=== PATIENT | female | born 1970 | race Caucasian/White ===

== ENCOUNTER 2016-09-10 21:53 | Emergency (ER) | payer OTHER ==
[~2016-09-10 21:53] MED LIST: DEXILANT30 MG PO; DIOVAN80 MG PO; LEXAPRO20 MG PO; LO OVRAL PO
[2016-09-10 22:36] LABS: BASOPHILS 0.1 % (0.0-2.0); EOSINOPHILS 1.3 % (0-7); HEMATOCRIT 37.4 % (36.0-48.0); HEMOGLOBIN 12.2 g/dL (12-16); IMMATURE GRANULOCYTES 0.3 % (0-5); LYMPHOCYTES 19.7 % (15-50); MCH 27.9 pg (26.0-34.0); MCHC 32.6 g/dL (31.0-37.0); MCV 85.4 fL (80.0-100.0); MEAN PLATELET VOLUME 9.2 fL (7.4-10.4); MONOCYTES 5.4 % (2-11); NEUTROPHILS 73.2 % (40-80); PLATELET COUNT 299 10x3/uL (130-400); RBC 4.38 10x6/uL (4.00-5.40); RDW 14.1 % (11.5-14.5); WBC 13.1 10x3/uL (4.8-10.8)
[2016-09-10 22:56] LABS: ALBUMIN 2.6 g/dL (3.4-5.0); ALKALINE PHOSPHATASE 68 U/L (46-116); ALT (SGPT) 11 U/L (10-68); BILIRUBIN - TOTAL 0.22 mg/dL (0.2-1.3); CALCIUM 7.7 mg/dL (8.5-10.1); CARBON DIOXIDE 21.2 mmol/L (21.0-32.0); CHLORIDE - SERUM 104 mmol/L (98-107); CREATININE - SERUM 2.6 mg/dL (0.6-1.3); POTASSIUM - SERUM 3.5 mmol/L (3.5-5.1); PROTEIN - SERUM 5.9 g/dL (6.4-8.2); SODIUM 137 mmol/L (136-145); UREA NITROGEN 25 mg/dL (7-18); eGFR NON AFRICAN AMERICAN 21 mL/min (90-120)
[2016-09-10 22:59] LABS: C-REACTIVE PROTEIN 8.5 mg/dL (0.0-0.9); CREATINE KINASE 23 UL (21-215); MAGNESIUM - SERUM 1.7 mg/dL (1.8-2.4)
[2016-09-10 23:02] LABS: CALC OSMOLALITY 282 mosm/kg (275-300); GLUCOSE 188 mg/dL (74-106); TROPONIN-I < 0.017 ng/mL (0.000-0.060)
[2016-09-10 23:25] LABS: PRO BNP 319 pg/mL (0-125)
[2016-09-10 23:36] LABS: ERYTHROCYTE SEDIMENTATION RATE 29 mm/hr (0-20)
[2016-09-10 23:37] LABS: APPEARANCE TURBID (CLEAR); BILIRUBIN NEGATIVE (NEGATIVE); COLOR YELLOW (YELLOW); GLUCOSE NEGATIVE (NEGATIVE); KETONE NEGATIVE (NEGATIVE); LEUKOCYTE ESTERASE 2+ (NEGATIVE); NITRITE NEGATIVE (NEGATIVE); PROTEIN 2+ mg/dL (NEGATIVE); SPECIFIC GRAVITY 1.015 (1.005-1.020); UROBILINOGEN NORMAL (NORMAL)
[2016-09-10 23:46] LABS: BACTERIA MANY /hpf (NONE SEEN); GRANULAR CAST RARE /lpf (NONE SEEN); HYALINE CAST RARE /lpf (NONE SEEN); MUCUS <1+ /lpf (NONE SEEN); WHITE CELLS - URINE >50 /hpf (0-5)
== END 2016-09-11 01:25 | disposition home or self-care (01) ==
LOC: D.ER 21:53
PROVIDERS: Emergency Medicine
DX: R00.2 Palpitations (principal); R00.0 Tachycardia, unspecified

== ENCOUNTER 2016-10-27 07:22 | Inpatient (IN) | payer OTHER ==
[~2016-10-27] VITALS: Ht 157.5 cm; Wt 125.9 kg
[2016-10-27] MEDS ORDERED: LESCOL40 MG PO (08:13)
[2016-10-27] MEDS ORDERED: COZAAR50 MG PO (08:14)
[2016-10-27 08:15] LABS: BASOPHILS 0.5 % (0-2); EOSINOPHILS 2.3 % (0-7); HEMATOCRIT 38.9 % (36.0-48.0); HEMOGLOBIN 12.7 g/dL (12-16); IMMATURE GRANULOCYTES 0.2 % (0-5); LYMPHOCYTES 25.2 % (15-50); MCH 28.3 pg (26.0-34.0); MCHC 32.6 g/dL (31.0-37.0); MCV 86.8 fL (80.0-100.0); MEAN PLATELET VOLUME 9.5 fL (7.4-10.4); MONOCYTES 4.2 % (2-11); NEUTROPHILS 67.6 % (40-80); PLATELET COUNT 350 10x3/uL (130-400); RBC 4.48 10x6/uL (4.00-5.40); RDW 14.2 % (11.5-14.5); WBC 8.8 10x3/uL (4.8-10.8)
[2016-10-27 08:19] LABS: ANION GAP 15.2 mmol/L (8-16); CALCIUM 8.8 mg/dL (8.5-10.1); CARBON DIOXIDE 21.6 mmol/L (21.0-32.0); CREATININE - SERUM 2.6 mg/dL (0.6-1.3); POTASSIUM - SERUM 3.8 mmol/L (3.5-5.1)
[2016-10-27 08:20] LABS: INR 0.9 (0.85-1.17)
[2016-10-27 08:24] VITALS: BP 132/98; BMI 48.6
[2016-10-27 16:46] VITALS: BP 129/79; Ht 157.5 cm; Wt 125.9 kg
[2016-10-27 18:29] LABS: BASOPHILS 0.1 % (0-2); EOSINOPHILS 0.7 % (0-7); HEMATOCRIT 34.7 % (36.0-48.0); HEMOGLOBIN 11.1 g/dL (12-16); IMMATURE GRANULOCYTES 0.2 % (0-5); LYMPHOCYTES 15.4 % (15-50); MCV 87.6 fL (80.0-100.0); MEAN PLATELET VOLUME 9.3 fL (7.4-10.4); MONOCYTES 3.1 % (2-11); NEUTROPHILS 80.5 % (40-80); PLATELET COUNT 327 10x3/uL (130-400); RBC 3.96 10x6/uL (4.00-5.40); RDW 14.3 % (11.5-14.5)
[2016-10-27 18:35] LABS: INR 0.95 (0.85-1.17); PROTIME 12.5 SECONDS (11.6-15.0)
[2016-10-27 18:36] LABS: WBC 11.3 10x3/uL (4.8-10.8)
[2016-10-28 00:42] VITALS: BP 126/85
[2016-10-28 04:00] VITALS: BP 143/71
[2016-10-28 06:07] LABS: BASOPHILS 0.3 % (0-2); HEMATOCRIT 31.8 % (36.0-48.0); HEMOGLOBIN 10.4 g/dL (12-16); IMMATURE GRANULOCYTES 0.3 % (0-5); LYMPHOCYTES 18.7 % (15-50); MCH 28.7 pg (26.0-34.0); MCHC 32.7 g/dL (31.0-37.0); MCV 87.6 fL (80.0-100.0); MEAN PLATELET VOLUME 9.8 fL (7.4-10.4); MONOCYTES 4.9 % (2-11); NEUTROPHILS 74.8 % (40-80); PLATELET COUNT 339 10x3/uL (130-400); RBC 3.63 10x6/uL (4.00-5.40); RDW 14.5 % (11.5-14.5); WBC 11.7 10x3/uL (4.8-10.8)
[2016-10-28 06:18] LABS: ANION GAP 14.4 mmol/L (8-16); CARBON DIOXIDE 21.7 mmol/L (21.0-32.0); CREATININE - SERUM 2.7 mg/dL (0.6-1.3); POTASSIUM - SERUM 4.1 mmol/L (3.5-5.1)
[2016-10-28 12:35] LABS: BASOPHILS 0.1 % (0-2); EOSINOPHILS 0 % (0-7); HEMOGLOBIN 10.9 g/dL (12-16); IMMATURE GRANULOCYTES 0.3 % (0-5); MCH 28.1 pg (26.0-34.0); MCHC 32.1 g/dL (31.0-37.0); MCV 87.6 fL (80.0-100.0); MEAN PLATELET VOLUME 9.3 fL (7.4-10.4); MONOCYTES 3.3 % (2-11); NEUTROPHILS 89.3 % (40-80); PLATELET COUNT 326 10x3/uL (130-400); RBC 3.88 10x6/uL (4.00-5.40); RDW 14.5 % (11.5-14.5); WBC 15.6 10x3/uL (4.8-10.8)
[2016-10-28 12:48] VITALS: BP 121/76
[2016-10-28 14:05] LABS: APPEARANCE CLOUDY (CLEAR); BILIRUBIN NEGATIVE (NEGATIVE); COLOR RED (YELLOW); GLUCOSE NEGATIVE (NEGATIVE); KETONE NEGATIVE (NEGATIVE); LEUKOCYTE ESTERASE 1+ (NEGATIVE); NITRITE NEGATIVE (NEGATIVE); PROTEIN 3+ mg/dL (NEGATIVE); SPECIFIC GRAVITY 1.015 (1.005-1.020); UROBILINOGEN NORMAL (NORMAL)
[2016-10-28 14:06] LABS: BACTERIA MODERATE /hpf (NONE SEEN); MUCUS <1+ /lpf (NONE SEEN); RED CELLS - URINE >50 /hpf (0-5)
[2016-10-28 16:00] VITALS: BP 113/60
[2016-10-28 19:00] VITALS: BP 145/81
[2016-10-29] VITALS: BP 131/76
[2016-10-29 04:00] VITALS: BP 124/75
[2016-10-29 07:11] LABS: BASOPHILS 0.1 % (0-2); EOSINOPHILS 1.5 % (0-7); HEMATOCRIT 31.6 % (36.0-48.0); HEMOGLOBIN 10.1 g/dL (12-16); IMMATURE GRANULOCYTES 0.4 % (0-5); LYMPHOCYTES 13.9 % (15-50); MCH 28.2 pg (26.0-34.0); MCV 88.3 fL (80.0-100.0); MEAN PLATELET VOLUME 9.8 fL (7.4-10.4); MONOCYTES 4.9 % (2-11); NEUTROPHILS 79.2 % (40-80); PLATELET COUNT 310 10x3/uL (130-400); RBC 3.58 10x6/uL (4.00-5.40); RDW 14.7 % (11.5-14.5)
[2016-10-29 07:13] LABS: WBC 10.7 10x3/uL (4.8-10.8)
[2016-10-29 07:30] LABS: ANION GAP 15.1 mmol/L (8-16); CALCIUM 7.6 mg/dL (8.5-10.1); CARBON DIOXIDE 19.8 mmol/L (21.0-32.0); CREATININE - SERUM 2.9 mg/dL (0.6-1.3); POTASSIUM - SERUM 3.9 mmol/L (3.5-5.1)
[2016-10-29 12:50] LABS: BASOPHILS 0.2 % (0-2); EOSINOPHILS 1.8 % (0-7); HEMATOCRIT 32.6 % (36.0-48.0); HEMOGLOBIN 10.4 g/dL (12-16); IMMATURE GRANULOCYTES 0.4 % (0-5); LYMPHOCYTES 14.5 % (15-50); MCH 28.4 pg (26.0-34.0); MCHC 31.9 g/dL (31.0-37.0); MCV 89.1 fL (80.0-100.0); MEAN PLATELET VOLUME 9.1 fL (7.4-10.4); NEUTROPHILS 78.1 % (40-80); PLATELET COUNT 284 10x3/uL (130-400); RBC 3.66 10x6/uL (4.00-5.40); RDW 14.7 % (11.5-14.5); WBC 9.7 10x3/uL (4.8-10.8)
[2016-10-29 13:20] VITALS: BP 123/64
[2016-10-29 17:16] VITALS: BP 151/86
[2016-10-29 20:40] VITALS: BP 120/84
[2016-10-29 23:34] VITALS: BP 137/82
[2016-10-30 04:24] VITALS: BP 140/88
[2016-10-30 06:20] LABS: BASOPHILS 0.2 % (0-2); EOSINOPHILS 3.4 % (0-7); HEMATOCRIT 33.2 % (36.0-48.0); HEMOGLOBIN 10.6 g/dL (12-16); IMMATURE GRANULOCYTES 0.3 % (0-5); LYMPHOCYTES 20.5 % (15-50); MCH 28.5 pg (26.0-34.0); MCHC 31.9 g/dL (31.0-37.0); MCV 89.2 fL (80.0-100.0); MEAN PLATELET VOLUME 9.5 fL (7.4-10.4); MONOCYTES 6.9 % (2-11); NEUTROPHILS 68.7 % (40-80); PLATELET COUNT 332 10x3/uL (130-400); RBC 3.72 10x6/uL (4.00-5.40); RDW 14.6 % (11.5-14.5); WBC 10.5 10x3/uL (4.8-10.8)
[2016-10-30 06:32] LABS: ANION GAP 13.5 mmol/L (8-16); CARBON DIOXIDE 21.5 mmol/L (21.0-32.0); CREATININE - SERUM 2.6 mg/dL (0.6-1.3)
[2016-10-30] MEDS ORDERED: DILAUDID2 MG PO (11:33)
[2016-10-30] MEDS ORDERED: LEVAQUIN250 MG PO (11:34)
[2016-10-30 11:38] VITALS: BP 146/85
== END 2016-10-30 13:14 | disposition home or self-care (01) | DRG 690 ==
LOC: D.OPS 07:22 → D.M2 07:22 → D.CT 09:00 → D.SP 10:00 → D.M2 15:15 → D.OPS 10-28 12:08 → D.M2 10-30 13:14
PROVIDERS: General Practice; Internal Medicine; ADMIT Internal Medicine Nephrology
PROC: 0TB13ZX Excision of Left Kidney, Percutaneous Approach, Diagnostic (ICD-10-PCS; principal; 2016-10-27 10:00)
DX: N39.0 Urinary tract infection, site not specified (principal); E87.1 Hypo-osmolality and hyponatremia; B95.5 Unspecified streptococcus as the cause of diseases classified elsewhere; N18.3 Chronic kidney disease, stage 3 (moderate); R31.0 Gross hematuria; D64.9 Anemia, unspecified

== ENCOUNTER → 2016-11-23 08:09 | Outpatient (CLI) | payer OTHER ==
[2016-10-27 16:46] VITALS: BMI 49.1
[~2016-11-23 08:09] MED LIST changes: +COZAAR50 MG PO; +DILAUDID2 MG PO; +LESCOL40 MG PO; +LEVAQUIN250 MG PO
== END | disposition home or self-care (01) ==
LOC: D.CT 08:09
DX: R91.1 Solitary pulmonary nodule (principal)

== ENCOUNTER → 2017-02-07 13:22 | Outpatient (CLI) | payer OTHER ==
[2016-10-27 16:46] VITALS: BMI 49.1
[2017-02-07 14:12] LABS: ANION GAP 15.9 mmol/L (8-16); CALCIUM 8.2 mg/dL (8.5-10.1); CARBON DIOXIDE 20.5 mmol/L (21.0-32.0); CHOL - HDL RATIO 3.5 ratio (2.3-4.1); CREATININE - SERUM 2.6 mg/dL (0.6-1.3); LDL-HDL RATIO 2.1 ratio (1.5-3.5); POTASSIUM - SERUM 4.4 mmol/L (3.5-5.1)
[2017-02-07 14:15] LABS: HEMOGLOBIN A1C 6.2 % (4.8-6.0)
== END | disposition home or self-care (01) ==
LOC: D.LABREF 13:22
PROVIDERS: Internal Medicine Nephrology
DX: N05.9 Unspecified nephritic syndrome with unspecified morphologic changes (principal)

== ENCOUNTER → 2017-08-27 14:15 | Outpatient (CLI) | payer OTHER ==
[2016-10-27 16:46] VITALS: BMI 49.1
[2017-08-27 16:22] LABS: ANION GAP 15.7 mmol/L (8-16); CALCIUM 8.3 mg/dL (8.5-10.1); CARBON DIOXIDE 22.5 mmol/L (21.0-32.0); CHOL - HDL RATIO 4.1 ratio (2.3-4.1); CREATININE - SERUM 2.7 mg/dL (0.6-1.3); LDL-HDL RATIO 2.2 ratio (1.5-3.5); POTASSIUM - SERUM 4.2 mmol/L (3.5-5.1)
== END | disposition home or self-care (01) ==
LOC: D.LAB 13:00
PROVIDERS: Pediatrics
DX: N18.9 Chronic kidney disease, unspecified (principal)

== ENCOUNTER → 2018-02-11 13:43 | Outpatient (CLI) | payer OTHER ==
[2016-10-27 16:46] VITALS: BMI 49.1
[2018-02-11 15:54] LABS: ALBUMIN 3.5 g/dL (3.4-5.0); BILIRUBIN - TOTAL 0.32 mg/dL (0.2-1.3); CALCIUM 8.5 mg/dL (8.5-10.1); CARBON DIOXIDE 22.3 mmol/L (21.0-32.0); CREATININE - SERUM 2.8 mg/dL (0.6-1.3); POTASSIUM - SERUM 4.3 mmol/L (3.5-5.1); PROTEIN - SERUM 7.4 g/dL (6.4-8.2)
== END | disposition home or self-care (01) ==
LOC: D.LABREF 13:43
PROVIDERS: Pediatrics
DX: N18.9 Chronic kidney disease, unspecified (principal)

== ENCOUNTER → 2018-02-13 17:36 | Outpatient (CLI) | payer OTHER ==
[2016-10-27 16:46] VITALS: BMI 49.1
== END | disposition home or self-care (01) ==
LOC: D.LABREF 17:36
DX: N18.9 Chronic kidney disease, unspecified (principal)

== ENCOUNTER → 2018-05-17 19:32 | Outpatient (CLI) | payer OTHER ==
[2016-10-27 16:46] VITALS: BMI 49.1
== END | disposition home or self-care (01) ==
LOC: D.LABREF 19:32
DX: N18.9 Chronic kidney disease, unspecified (principal)

== ENCOUNTER → 2018-07-18 15:37 | Outpatient (CLI) | payer OTHER ==
[2016-10-27 16:46] VITALS: BMI 49.1
[2018-07-18 16:36] LABS: ANION GAP 18.7 mmol/L (8-16); CALCIUM 8.5 mg/dL (8.5-10.1); CARBON DIOXIDE 21.5 mmol/L (21.0-32.0); CHOL - HDL RATIO 3.9 ratio (2.3-4.1); CREATININE - SERUM 2.8 mg/dL (0.6-1.3); LDL-HDL RATIO 2.4 ratio (1.5-3.5); POTASSIUM - SERUM 4.2 mmol/L (3.5-5.1)
[2018-07-22 14:11] LABS: PHOSPHOROUS 3.8 mg/dL (2.5-4.9)
== END | disposition home or self-care (01) ==
LOC: D.LABREF 15:37
PROVIDERS: Internal Medicine Nephrology
DX: N18.9 Chronic kidney disease, unspecified (principal)

== ENCOUNTER → 2018-10-18 17:55 | Outpatient (CLI) | payer OTHER ==
[2016-10-27 16:46] VITALS: BMI 49.1
[2018-10-18 18:36] LABS: PRO/CRE RATIO URINE 0.5 mg/g; PROTEIN - URINE 12.9 mg/dL (0.0-11.9)
== END | disposition home or self-care (01) ==
LOC: D.LABREF 17:55
PROVIDERS: ATTEND Pediatrics
DX: N18.9 Chronic kidney disease, unspecified (principal)

== ENCOUNTER 2018-10-27 20:00 | Inpatient (IN) | payer OTHER ==
[~2018-10-27] VITALS: Ht 157.5 cm; Wt 129.5 kg
[2018-10-27] MEDS ORDERED: TOPROL XL50 MG PO (20:18)
[2018-10-27] MEDS ORDERED: LESCOL40 MG PO (20:18)
[2018-10-27] MEDS ORDERED: DEMADEX10 MG PO (20:18)
[2018-10-27 20:48] LABS: BASOPHILS 0.1 % (0-2); EOSINOPHILS 0 % (0-7); HEMATOCRIT 40.4 % (36.0-48.0); HEMOGLOBIN 13.6 g/dL (12-16); IMMATURE GRANULOCYTES 0.3 % (0-5); LYMPHOCYTES 5.5 % (15-50); MCHC 33.7 g/dL (31.0-37.0); MCV 86.1 fL (80.0-100.0); MEAN PLATELET VOLUME 9.4 fL (7.4-10.4); MONOCYTES 2.2 % (2-11); NEUTROPHILS 91.9 % (40-80); RBC 4.69 10x6/uL (4.00-5.40); RDW 13.7 % (11.5-14.5); WBC 17.2 10x3/uL (4.8-10.8)
[2018-10-27 20:49] LABS: PLATELET COUNT 273 10x3/uL (130-400)
[2018-10-27 20:50] LABS: APPEARANCE HAZY (CLEAR); BILIRUBIN NEGATIVE (NEGATIVE); COLOR YELLOW (YELLOW); GLUCOSE NEGATIVE (NEGATIVE); KETONE NEGATIVE (NEGATIVE); NITRITE POSITIVE (NEGATIVE); PROTEIN 2+ mg/dL (NEGATIVE); SPECIFIC GRAVITY 1.015 (1.005-1.020); UROBILINOGEN NORMAL (NORMAL)
[2018-10-27 20:52] LABS: BACTERIA MANY /hpf (NONE SEEN); EPITHELIAL CELLS 0-5 /hpf (0-5); RED CELLS - URINE 0-5 /hpf (0-5); WHITE CELLS - URINE >50 /hpf (0-5)
[2018-10-27 21:12] LABS: ALBUMIN 3.2 g/dL (3.4-5.0); ANION GAP 18.6 mmol/L (8-16); BILIRUBIN - TOTAL 0.57 mg/dL (0.2-1.3); CALCIUM 8.6 mg/dL (8.5-10.1); CARBON DIOXIDE 20.1 mmol/L (21.0-32.0); CREATININE - SERUM 3.2 mg/dL (0.6-1.3); POTASSIUM - SERUM 3.7 mmol/L (3.5-5.1); PROTEIN - SERUM 6.7 g/dL (6.4-8.2)
[2018-10-27 22:01] VITALS: BP 113/59
[2018-10-27 23:28] VITALS: BP 125/72; Ht 157.5 cm; Wt 129.5 kg
[2018-10-28 05:49] LABS: BASOPHILS 0.2 % (0-2); EOSINOPHILS 0.3 % (0-7); HEMOGLOBIN 12.1 g/dL (12-16); IMMATURE GRANULOCYTES 0.2 % (0-5); LYMPHOCYTES 13.4 % (15-50); MCH 28.9 pg (26.0-34.0); MCHC 33.6 g/dL (31.0-37.0); MCV 86.1 fL (80.0-100.0); MEAN PLATELET VOLUME 9.9 fL (7.4-10.4); MONOCYTES 6.8 % (2-11); NEUTROPHILS 79.1 % (40-80); RBC 4.18 10x6/uL (4.00-5.40); WBC 16.6 10x3/uL (4.8-10.8)
[2018-10-28 05:55] LABS: ANION GAP 13.4 mmol/L (8-16); CALCIUM 8.3 mg/dL (8.5-10.1); CARBON DIOXIDE 24.1 mmol/L (21.0-32.0); CREATININE - SERUM 3.1 mg/dL (0.6-1.3); MAGNESIUM - SERUM 2.1 mg/dL (1.8-2.4); POTASSIUM - SERUM 3.5 mmol/L (3.5-5.1)
[2018-10-28 05:59] LABS: PLATELET COUNT 215 10x3/uL (130-400)
[2018-10-28 06:02] VITALS: BP 114/67
[2018-10-28 09:00] VITALS: BP 135/77
[2018-10-28] MEDS ORDERED: OMNICEF300 MG PO (10:44)
== END 2018-10-28 12:06 | disposition home or self-care (01) | DRG 683 ==
LOC: D.ER 20:00 → D.MS 22:31
PROVIDERS: Family Medicine; ADMIT Internal Medicine Nephrology; ATTEND Internal Medicine Nephrology
DX: N17.9 Acute kidney failure, unspecified (principal); N39.0 Urinary tract infection, site not specified; I12.9 Hypertensive chronic kidney disease with stage 1 through stage 4 chronic kidney disease, or unspecified chronic kidney disease; N18.3 Chronic kidney disease, stage 3 (moderate); E86.0 Dehydration

== ENCOUNTER → 2018-11-12 17:53 | Outpatient (CLI) | payer OTHER ==
[2018-10-27 23:28] VITALS: BMI 52.2
[~2018-11-12 17:53] MED LIST changes: +DEMADEX10 MG PO; +OMNICEF300 MG PO; +TOPROL XL50 MG PO
[2018-11-12 18:25] LABS: ANION GAP 16.5 mmol/L (8-16); CALCIUM 8.8 mg/dL (8.5-10.1); CARBON DIOXIDE 24.1 mmol/L (21.0-32.0); CREATININE - SERUM 3.4 mg/dL (0.6-1.3); POTASSIUM - SERUM 3.6 mmol/L (3.5-5.1)
== END | disposition home or self-care (01) ==
LOC: D.LABREF 17:53
PROVIDERS: ATTEND Pediatrics
DX: N18.9 Chronic kidney disease, unspecified (principal)

== ENCOUNTER → 2018-12-04 18:34 | Outpatient (CLI) | payer OTHER ==
[2018-10-27 23:28] VITALS: BMI 52.2
[2018-12-04 19:14] LABS: ANION GAP 16.9 mmol/L (8-16); CALCIUM 8.9 mg/dL (8.5-10.1); CARBON DIOXIDE 22.8 mmol/L (21.0-32.0); CREATININE - SERUM 2.9 mg/dL (0.6-1.3); POTASSIUM - SERUM 3.7 mmol/L (3.5-5.1)
== END | disposition home or self-care (01) ==
LOC: D.LABREF 18:34
PROVIDERS: ATTEND Pediatrics
DX: N18.9 Chronic kidney disease, unspecified (principal)

== ENCOUNTER → 2019-01-09 14:44 | Outpatient (CLI) | payer OTHER ==
[2018-10-27 23:28] VITALS: BMI 52.2
[2019-01-09 16:12] LABS: ANION GAP 17.4 mmol/L (8-16); CALCIUM 8.8 mg/dL (8.5-10.1); CARBON DIOXIDE 21.5 mmol/L (21.0-32.0); CHOL - HDL RATIO 3.4 ratio (2.3-4.1); CREATININE - SERUM 2.5 mg/dL (0.6-1.3); LDL-HDL RATIO 1.8 ratio (1.5-3.5); POTASSIUM - SERUM 3.9 mmol/L (3.5-5.1)
== END | disposition home or self-care (01) ==
LOC: D.LABREF 14:44
PROVIDERS: ATTEND Pediatrics
DX: N18.9 Chronic kidney disease, unspecified (principal)

== ENCOUNTER → 2019-04-15 18:30 | Outpatient (CLI) | payer OTHER ==
[2018-10-27 23:28] VITALS: BMI 52.2
[2019-04-15 18:43] LABS: BASOPHILS 0.2 % (0-2); EOSINOPHILS 2.4 % (0-7); HEMATOCRIT 40.9 % (36.0-48.0); HEMOGLOBIN 13.1 g/dL (12-16); IMMATURE GRANULOCYTES 0.2 % (0-5); LYMPHOCYTES 25.3 % (15-50); MCH 29.2 pg (26.0-34.0); MCV 91.1 fL (80.0-100.0); MONOCYTES 3.9 % (2-11); RBC 4.49 10x6/uL (4.00-5.40); RDW 13.9 % (11.5-14.5); WBC 9.7 10x3/uL (4.8-10.8)
[2019-04-15 18:46] LABS: CREATININE - URINE 27.7 mg/dL (30-125); PRO/CRE RATIO URINE 0.4 mg/g; PROTEIN - URINE 10.7 mg/dL (0.0-11.9)
[2019-04-15 18:50] LABS: CALCIUM 8.6 mg/dL (8.5-10.1); CARBON DIOXIDE 23.9 mmol/L (21.0-32.0); CHOL - HDL RATIO 3.1 ratio (2.3-4.1); CREATININE - SERUM 2.8 mg/dL (0.6-1.3); LDL-HDL RATIO 1.7 ratio (1.5-3.5); POTASSIUM - SERUM 3.9 mmol/L (3.5-5.1)
[2019-04-15 18:51] LABS: PLATELET COUNT 370 10x3/uL (130-400)
== END | disposition home or self-care (01) ==
LOC: D.LABREF 18:30
PROVIDERS: ATTEND Pediatrics
DX: N18.4 Chronic kidney disease, stage 4 (severe) (principal)

== ENCOUNTER → 2019-08-22 12:46 | Outpatient (CLI) | payer OTHER ==
[2018-10-27 23:28] VITALS: BMI 52.2
== END | disposition home or self-care (01) ==
LOC: D.LABREF 12:46
PROVIDERS: ATTEND Pediatrics
DX: R30.9 Painful micturition, unspecified (principal); R39.15 Urgency of urination

== ENCOUNTER → 2019-09-11 13:40 | Outpatient (CLI) | payer OTHER ==
[2018-10-27 23:28] VITALS: BMI 52.2
== END | disposition home or self-care (01) ==
LOC: D.LABREF 13:40
PROVIDERS: ATTEND Pediatrics
DX: R30.9 Painful micturition, unspecified (principal)

== ENCOUNTER → 2020-02-06 17:04 | Outpatient (CLI) | payer OTHER ==
[2018-10-27 23:28] VITALS: BMI 52.2
[2020-02-06 17:12] LABS: BASOPHILS 0.4 % (0-2); HEMOGLOBIN 13.2 g/dL (12-16); IMMATURE GRANULOCYTES 0.2 % (0-5); LYMPHOCYTES 23.2 % (15-50); MCH 28.6 pg (26.0-34.0); MCHC 32.2 g/dL (31.0-37.0); MCV 88.9 fL (80.0-100.0); MEAN PLATELET VOLUME 10.3 fL (7.4-10.4); NEUTROPHILS 70.2 % (40-80); PLATELET COUNT 351 10x3/uL (130-400); RBC 4.61 10x6/uL (4.00-5.40); RDW 14.4 % (11.5-14.5); WBC 10.6 10x3/uL (4.8-10.8)
[2020-02-06 17:17] LABS: CREATININE - URINE 66.8 mg/dL (30-125); PROTEIN - URINE 66.8 mg/dL (0.0-11.9)
[2020-02-06 17:47] LABS: ANION GAP 15.9 mmol/L (8-16); CALCIUM 8.5 mg/dL (8.5-10.1); CARBON DIOXIDE 23.9 mmol/L (21.0-32.0); CHOL - HDL RATIO 3.8 ratio (2.3-4.1); CREATININE - SERUM 2.9 mg/dL (0.6-1.3); LDL-HDL RATIO 2.3 ratio (1.5-3.5); POTASSIUM - SERUM 4.8 mmol/L (3.5-5.1)
== END | disposition home or self-care (01) ==
LOC: D.LABREF 17:04
PROVIDERS: ATTEND Pediatrics
DX: N18.9 Chronic kidney disease, unspecified (principal)

== ENCOUNTER → 2020-08-06 08:39 | Outpatient (CLI) | payer OTHER ==
[2018-10-27 23:28] VITALS: BMI 52.2
[2020-08-06 10:01] LABS: CREATININE - URINE 128.4 mg/dL (30-125); PROTEIN - URINE 123.9 mg/dL (0.0-11.9)
[2020-08-06 11:00] LABS: BILIRUBIN NEGATIVE (NEGATIVE); KETONE NEGATIVE (NEGATIVE); NITRITE NEGATIVE (NEGATIVE); UROBILINOGEN NORMAL mg/dL (< 2)
[2020-08-06 11:01] LABS: SQUAMOUS EPITHELIAL 0-5 HPF (0-4); WHITE CELLS - URINE 25-50 HPF (0-4)
[2020-08-06 11:02] LABS: BACTERIA MANY HPF (NONE SEEN)
--- NOTE | 2020-08-08 14:59 | EC ---
PATIENT:SANDRA ROYAL DATE OF SERVICE: 08/06/20 SEX: F MEDICAL RECORD: [id number] DATE OF : 68 LOCATION:D[facility] AGE OF PATIENT: 49 ADMISSION DATE: 08/06/20 REFERRING PHYSICIAN: INTERPRETING PHYSICIAN: VINNIE ADAMS MD ECHOCARDIOGRAM REPORT ECHO CHARGES 4 ECHO COMPLETE Date: 08/06/20 CLINICAL DIAGNOSIS: HEART FAILURE ECHOCARDIOGRAPHIC MEASUREMENTS (adult normal given) AC root (d.<3.7cm) 2.3 cm LV Septum d (<1.2 cm> 0.7 cm Valve Excursion 1.3 cm LV Septum (systole) 1.4 cm Left Atria (s.<4.0cm> 3.6 cm LVPW d(<1.2cm) 1.0 cm RV (d.<2.3cm) 3.1 cm LVPW (sytole) 1.6 cm LV diastole(<5.6CM) 5.4 cm MV E-F(>70mm/sec) cm LV systole 3.4 cm LVOT Diameter 1.5 cm MV exc.(>10mm) 1.7 cm Est.ejection fraction (50-75%) % DOPPLER: LVIT cm/sec A 76 cm/sec E 115 cm/sec LA cm/sec RVSP 17 mmHg LVOT 92 cm/sec AOP1/2T m/s Asc. Ao 150 cm/sec RVOT 77 cm/sec RA cm/sec PA 108 cm/sec AV Gradient Peak 9.0 mmHg AV Mean 5.2 mmHg AV Area 1.1 cm MV Gradient Peak 5.6 mmHg MV Mean 2.5 mmHg MV Area cm COMMENTS: Sand Control Worker: Praful RIOS Schedule Clerk: 5 Dr. Adams TAPE# Pericardial Effusion N DATE OF SERVICE: INTERPRETATION: Normal left ventricular chamber size and contractile function with ejection fraction 55%. Left atrial chamber appears normal. Right atrium and right ventricular chamber size and function appears normal, but not well visualized. Aortic valve appears normal. Mitral valve appears normal. Tricuspid valve appears normal with trace tricuspid regurgitation. Pulmonic valve is not well visualized. No pericardial effusion visualized. IMPRESSION: Normal left ventricular chamber size and contractile function, ECHOCARDIOGRAM REPORT [id number] SANDRA ROYAL ejection fraction 55%. TRANSINT:[id number] Voice Confirmation ID: [id number] DOCUMENT ID: [id number] VINNIE ADAMS MD at 1459 CC: [id number] DICTATION DATE: 08/07/20 1324 METAL BUGGY OPERATOR: 08/07/20 1541 DEP CLI 08/06/20 [id number] [place] [address]
== END | disposition home or self-care (01) ==
LOC: D.ECHO 08:39
PROVIDERS: ATTEND Internal Medicine
DX: N18.4 Chronic kidney disease, stage 4 (severe) (principal); R60.9 Edema, unspecified; I10 Essential (primary) hypertension; R80.1 Persistent proteinuria, unspecified; E55.9 Vitamin D deficiency, unspecified; N25.81 Secondary hyperparathyroidism of renal origin; I50.30 Unspecified diastolic (congestive) heart failure; Z68.43 Body mass index [BMI] 50.0-59.9, adult

== ENCOUNTER → 2020-09-17 14:21 | Outpatient (CLI) | payer OTHER ==
[2018-10-27 23:28] VITALS: BMI 52.2
[2020-09-17 14:53] LABS: ALBUMIN 3.6 g/dL (3.4-5.0); ANION GAP 18.8 mmol/L (8-16); BILIRUBIN - TOTAL 0.39 mg/dL (0.2-1.3); CALCIUM 8.6 mg/dL (8.5-10.1); CARBON DIOXIDE 21.7 mmol/L (21.0-32.0); CREATININE - SERUM 2.9 mg/dL (0.6-1.3); POTASSIUM - SERUM 4.5 mmol/L (3.5-5.1); PROTEIN - SERUM 7.2 g/dL (6.4-8.2); URIC ACID 7.9 mg/dL (2.6-7.2)
== END | disposition home or self-care (01) ==
LOC: D.LABREF 14:21
PROVIDERS: ATTEND Pediatrics
DX: M25.579 Pain in unspecified ankle and joints of unspecified foot (principal)